=== PATIENT | male | born 1985 | race Caucasian/White ===

== ENCOUNTER 2017-07-27 15:05 | Emergency (ER) | payer OTHER ==
[~2017-07-27] VITALS: Ht 182.9 cm; Wt 90.7 kg
--- NOTE | 2017-07-27 16:36 | NUR ---
Patient discharged in stable conditon in [employer] custody. Written and verbal after care instructions given.
== END 2017-07-27 16:38 ==
LOC: ER 15:05
DX: S01.81XA Laceration without foreign body of other part of head, initial encounter (principal); W21.03XA Struck by baseball, initial encounter; Y93.89 Activity, other specified; Y92.89 Other specified places as the place of occurrence of the external cause; Y99.8 Other external cause status
CPT/HCPCS: 12011; 70450; 72125; 90471; 90715; 99284; A4217; A4663; J3490